=== PATIENT | male | born 1950 | race Caucasian/White ===

== ENCOUNTER 2016-06-19 15:40 | Observation (INO) | payer MEDICARE ==
[~2016-06-19] VITALS: Ht 175.3 cm; Wt 96.6 kg
--- NOTE | ~2016-06-19 | ECH ---
Transthoracic Echocardiography Report (TTE) Demographics Patient Name RUSSELL COBOS Date of Study 06/20/2016 Patient Number [id number] Visit Number [id number] Date of 1950 Room Number 427 Gender Male Number Age 66 year(s) Referring Jez Kelley Features Reporter Monica Vila [facility] Physician MD Jez STEWART Physician Interpreting Leonel Slaughter MD Forest Manager Physician Supervising Ordering Jez Kelley MD/JUAN MIGUEL Physician Nurse Stress Physics Technician Conclusions Summary Technically fair exam. The estimated left ventricular ejection fraction is 50-55%. Segmental wall motion abnormalities noted. Mild concentric left ventricular hypertrophy. Diastolic assessment reveals Grade I diastolic dysfunction. No significant valvular abnormalities. Procedure Type of Study TTE procedure:Echo Complete SF. Procedure Date Date: 06/20/2016 Start: 08:45 AM Technical Quality: Fair due to body habitus. Indications:Chest pain and Coronary artery disease. Appropriate Use Criteria: 9 Height: 69 inches Weight: 213 pounds BSA: 2.12 m Rhythm: Within normal limits HR: 68 bpm BP: 100/63 mmHg M-Mode/2D Measurements LV Diastolic Dimension: 4.72 cm LV Systolic Dimension: 3.85 cm LV Septum Diastolic: 1.18 cm LV PW Diastolic: 1.18 cm AO Root Dimension: 2.69 cm Cardiac Output: 3.98 l/min LA Dimension: 4.41 cm Cardiac Index: 1.88 l/min*m RV Diastolic Dimension: 3.33 cm LA volume index: 19 ml/m LVOT: 1.84 cm LVOT VTI: 22 cm RV Base: 3.2 cm LV Stroke volume: 58.47 ml RV Mid: 2.6 cm LV Stroke volume index: 27.58 ml/m RV Length: 5.8 cm TAPSE: 1.4 cm TDI-S': 10 cm/s Doppler Measurements AV Peak Velocity: 1.26 m/s MV Peak E-Wave: 0.69 m/s AV Peak Gradient: 6.35 mmHg MV Peak A-Wave: 0.81 m/s AV Mean Gradient: 3.52 mmHg MV E/A Ratio: 0.86 LVOT Peak Velocity: 1.29 m/s MV P1/2t: 94.6 msec AV Area (Continuity):2.51 cm MV Deceleration Time: 232.1 msec TR Velocity:2.35 m/s MV Area (PHT): 2.32 cm TR Gradient:22.03 mmHg PV Peak Velocity: 1.06 m/s Estimated RAP:5 mmHg PV Peak Gradient: 4.49 mmHg Estimated RVSP: 27 mmHg Estimated PASP: 27.03 mmHg E' Septal Velocity: 0.07 m/s A' Septal Velocity: 0.1 m/s E' Lateral Velocity: 0.16 m/s A' Lateral Velocity: 0.1 m/s RA Area: 13.23 cm Findings Left Ventricle The left ventricle is normal in size . Mild concentric left ventricular hypertrophy. Diastolic assessment reveals Grade I diastolic dysfunction. Right Ventricle Normal right ventricle structure and function. Left Atrium Normal left atrial size. Right Atrium Normal right atrial size. Mitral Valve Normal mitral valve structure and function. Aortic Valve Normal aortic valve structure and function. Tricuspid Valve Normal tricuspid valve structure and function. Mild tricuspid regurgitation by color Doppler. Estimated pulmonary pressures within normal range. Pulmonic Valve Normal pulmonic valve structure and function. Pericardial Effusion No evidence of pericardial effusion. Miscellaneous Visualized portions of the aortic root and ascending aorta appear normal in size. Pleural Effusion No evidence of pleural effusion. Contractility Score LV regional wall motion:(0-Non visualized 1-Normal 2-Hypokinesis 3-Akinesis 4-Dyskinesis 5-Aneurysm) Signature
--- NOTE | 2016-06-21 12:40 | ER ---
ADMIT: 06/19/2016 RM/LOC: 427 [facility] MR#: [id number] [address] [address] CHANDRIKA, DARMICHAEL Wetzel [address] [place] [address] Emergency Room Report SEX: M AGE: 66 : 1950 DATE: 06/19/2016 ADDENDUM: A 66-year-old white male with known coronary disease, developing escalating angina to the point where he can hardly do anything without having chest pain. Nitroglycerin helps as long as he does not do anything. We put an inch of paste on him and he has been doing better. He is a diabetic along with his coronary disease. [facility], so we will hold him tonight, Dr. Carlton will dictate addendum unless otherwise needed. CONDITION ON DISCHARGE/ADMISSION: Serious, but stable. Cristobal Ko MD/ brayan JOB #: [id number] CC: Juan Story MD, Attending Physician Juan Story MD, Family Physician
--- NOTE | 2016-06-26 16:45 | HP ---
ADMIT: 06/19/2016 RM/LOC: 427 [facility] MR#: [id number] [address] [address] CHANDRIKA, DARMICHAEL Wetzel [address] [place] [address] History and Physical SEX: M AGE: 66 : 1950 DATE OF SERVICE: CHIEF COMPLAINT: Chest pain. HISTORY OF PRESENT ILLNESS: This is a 66-year-old male, [facility] patient, with past medical history significant for coronary artery disease, status post stenting to the RCA in 1999 and a 4-vessel bypass in 2007, hypertension, hyperlipidemia, and type 2 diabetes mellitus, admitted with unstable angina. The patient states that for the past several weeks, he has felt that "something wasn't right." He has been getting chest discomfort and nausea with associated shortness of breath that worsens with exertion and resolves with rest. Since his bypass in 2007, he has been trying to exercise regularly, although he does state that he does not eat a very low-fat cardiac healthy diet. In the past few months, he has been walking and jogging and doing light weights. This past week, he has only been able to exercise for a total of 3-4 minutes before becoming severely short of breath and experiencing chest discomfort. Today, he was seen at the [facility] here in town and was wore out after making the short walk from the car to the clinic. At the [facility], he told the nurse that he was having some chest discomfort at that time and was immediately given nitroglycerin, aspirin, and put on 4 L of oxygen. His EKG at that time showed a normal sinus rhythm. He was then transferred to [facility] for further care. He states that his chest discomfort did resolve after he was given the nitroglycerin. Upon arriving to the ED here at [facility], an EKG was performed and was negative for acute [place]. His chest x-ray showed mild cardiomegaly. His vitals were stable. His initial troponin was negative. Currently states that he is chest pain-free. PAST MEDICAL HISTORY: 1. Coronary artery disease, status post stenting to the RCA in 1999 and a 4- vessel bypass in 2007. 2. Diabetes mellitus type 2. 3. Cataracts. 4. Hearing loss. 5. Hypertension. 6. Hypothyroidism. 7. Depression. 8. Hyperlipidemia. PAST SURGICAL HISTORY: 1. One stent to the RCA in 1999. 2. Four-vessel bypass in 2007. MEDICATIONS: 1. Enalapril 5 mg one tab daily. 2. Glipizide 5 mg one tab daily. 3. Levothyroxine 0.15 mg one tab daily. 4. Loratadine 10 mg one time daily. 5. Metformin 1000 mg one tab b.i.d. 6. Metoprolol tartrate 50 mg one tab b.i.d. ADMIT: 06/19/2016 RM/LOC: 427 [facility] MR#: [id number] [address] [place] [id number] [facility] [address] [place] [address] History and Physical SEX: M AGE: 66 : 1950 7. Simvastatin 80 mg one tab daily. ALLERGIES: NONE. SOCIAL HISTORY: He denies tobacco, alcohol, or illegal drug use. He does state that he drinks a gallon of ice tea daily and 8 cups of coffee daily. REVIEW OF SYSTEMS: A 10-point review of systems was reviewed and negative other than that stated above in the HPI. PHYSICAL EXAMINATION: VITAL SIGNS: Blood pressure 118/50, pulse 79, respirations 18, temp 98.8. GENERAL: He is alert and oriented x3. No acute distress. HEART: Regular rate and rhythm. No murmur. LUNGS: Clear. ABDOMEN: Obese, soft, nontender, nondistended. Positive bowel sounds. EXTREMITIES: No edema. LABORATORY DATA: Sodium 135, potassium 4.3, creatinine 1.5. White count 12.9, hemoglobin 16.7, platelets 204. LDH was 268. Magnesium 1.8. CK 578, MB 6.9. Troponin with normal EKG. Normal sinus rhythm. Chest x-ray showed mild cardiomegaly. ASSESSMENT AND PLAN: 1. Unstable angina. We will go ahead and trend his cardiac enzymes tonight as well as EKGs. Cardiology has been consulted for the morning. Also will go ahead and get an echo in the morning. 2. History of coronary artery disease, status post bypass. 3. Type 2 diabetes mellitus. We will hold his metformin and start sliding scale insulin. We will also check hemoglobin A1c. 4. Hypertension. Continue current hypertensive medications. 5. Hyperlipidemia. We will check a fasting lipid profile in the morning. 6. Acute kidney injury. His current creatinine is 1.5, but does not appear that he has a history of chronic kidney disease. We will increase his fluids to 100 mL an hour of normal saline tonight and recheck a BMP in the morning. 7. Obstructive sleep apnea, on continuous positive airway pressure. We will see if we can get in that here tonight. Kimberly Delgado DO Resident / Juan Story MD / brayan JOB #: [id number] CC: Juan Story, Attending Physician Juan Story, Family Physician
--- NOTE | 2016-06-27 08:04 | DS ---
ADMIT: 06/19/2016 RM/LOC: 427 [facility] MR#: [id number] [address] [address] RUSSELL COBOS [address] [place] [address] General Discharge Summary SEX: M AGE: 66 : 1950 ADMISSION DATE: 06/19/2016 DISCHARGE DATE: 06/21/2016 FINAL DIAGNOSES: 1. Unstable angina. 2. Known coronary artery disease - status post PCI to RCA and 4-vessel bypass. 3. Diabetes mellitus. 4. Acute kidney injury - resolved. 5. Systemic hypertension. 6. Hyperlipidemia. 7. History of mild depression. 8. Status post cataracts. 9. Chronic hearing loss. 10.Obstructive sleep apnea - on CPAP. BRIEF HISTORY: This 66-year-old male, [facility] patient, with a significant past history for coronary artery disease who stated for the previous several weeks prior to admission, he had felt "something was not right." He had been getting chest discomfort and nausea associated with shortness of breath, it would worsen with exertion and resolved with rest. In the week prior to admission, been able to only exercise for a total of 3 or 4 minutes before becoming severely short of breath and experiencing chest discomfort. On the day of admission, he was seen at the [facility] in [place] and was worn out after making short walk from the car to the clinic. He told the nurse at the [facility] about his chest discomfort and was given nitroglycerin, aspirin, and put on 4 L of O2. His EKG showed normal sinus rhythm and no acute changes. He was transferred to [facility] by private car. He reported that the chest discomfort he was experiencing resolved with nitroglycerin. Initial workup in the ER was benign. He was admitted for further evaluation and treatment. SIGNIFICANT LAB AND X-RAY: On 06/19 CBC showed hemoglobin of 16.7 g with essentially normal indices. Platelets of 204,000 white count of 12,900. Serial CBCs were followed and remained basically stable. Serial PTTs were followed to monitor his heparin therapy. On admission, CMP was normal, but for an LDH of 268 U/L (normal 84-246). On admission total CK was elevated at 578 U/L (normal 39-308), MB at 6.9 ng/mL (normal 0.0-3.6) with normal troponins. These were repeated q.6 hours x3 further and remained basically stable until 0400 hours on 06/21 when his troponin bumped up to 0.173 ng/mL. On 06/20 lipid panel showed total cholesterol 157 mg/dL, triglycerides of 188 mg/dL, HDL of 42, and LDL of 77 mg/per dL with a non HDL cholesterol of 115. Serial bedside blood sugars were followed. ADMIT: 06/19/2016 RM/LOC: 427 [facility] MR#: [id number] [address] [place] [address] General Discharge Summary SEX: M AGE: 66 : 1950 On 06/20 glycosylated hemoglobin was 8.0%. Chest x-ray on admission was read as "no definite acute cardiopulmonary process is identified. Mild cardiomegaly without radiographic evidence of acute cardiac decompensation/CHF is identified. Possible atelectasis, left lower lobe." On 06/20, he underwent transthoracic echocardiogram, showing ejection fraction of 50%-55% with segmental wall motion abnormalities noted, mild concentric left ventricular hypertrophy. No significant valvular abnormalities and grade 1 diastolic dysfunction. EKG of 06/20 at 0300 hours was read as "sinus bradycardia, septal and lateral ST-T abnormalities nonspecific, borderline ECG." Repeat on 06/21 at 0400 hours showed sinus bradycardia with rightward axis and anteroseptal and lateral T- wave abnormality, may be due to myocardial ischemia. Compared to 06/21/2011, no significant change. HOSPITAL COURSE: The patient was admitted through the emergency room and imaging and laboratory studies outlined above were begun. He was placed on telemetry with routine telemetry orders and placed on the chest pain point of entry ER protocol. He was allowed a diabetic diet. An IV of normal saline was run at keep open rate. Q.i.d. Accu-Cheks were started with low-dose sliding scale Humalog. Echocardiogram was ordered. Cardiology consultation was requested and Dr. Sharan Story was kind enough to see him on the morning of 06/20. That led to the further cardiac workup. His creatinine was 1.4 on admission. He was placed on heparin per ACS weight-based protocol and kept n.p.o. after midnight. Heart catheterization was discussed with him by Dr. Sharan Story. Connections were made with the [facility] in [place] and they were on diversion. By late afternoon of 06/20, it was felt best to transfer him to [facility] the following morning, Dr. Wylie was the accepting physician. He had a quiet night and on 06/21, he was transferred to [facility] for further evaluation. On dismissal, his Zocor was stopped, he was placed on generic Crestor 20 mg daily and Zetia 10 mg daily and aspirin 162 mg daily. His other medications included: 1. Claritin 10 mg daily. 2. Glucotrol 5 mg daily. 3. Lopressor 50 mg b.i.d. ADMIT: 06/19/2016 RM/LOC: 427 [facility] MR#: [id number] 26[address] [facility] [address] [place] [phone] RUSSELL COOBS [address] [place] [address] General Discharge Summary SEX: M AGE: 66 : 1950 4. Synthroid 0.15 mg daily and p.r.n. orders for glucose, Maalox, Tylenol, and Nitrostat. He is also on aspirin 162 mg daily. CONDITION ON TRANSFER: Stable on above treatment. FINAL DISPOSITION: As noted. PROGNOSIS: Guarded. Juan Story MD/ brayan JOB #: [id number] CC: Juan Story MD, Attending Physician Juan Story MD, Family Physician . [facility]
--- NOTE | 2016-07-05 17:24 | CO ---
ADMIT: 06/19/2016 RM/LOC: 427 [facility] MR#: [id number] [address] [address] RUSSELL COOBS [address] [place] [address] Consultation SEX: M AGE: 66 : 1950 DATE OF CONSULTATION: 06/20/2016 ATTENDING PHYSICIAN: Juan Story CONSULTING PHYSICIAN: Sharan Story MD REASON FOR CONSULT: Chest pain. Zamzam Blackbunr RN, scribing for Dr. Sharan Story. HISTORY OF PRESENT ILLNESS: Russell is a very pleasant, 66-year-old gentleman, I have been asked to see in Cardiology consultation by Dr. Juan Story for chest discomfort. He has history of prior coronary artery disease, status post PCI to RCA after myocardial infarction in the year 1999. He also had history of four-vessel bypass per his report in [place] in 2007 through the [facility]. He has history of sleep apnea, hypertension, hyperlipidemia, and diabetes, and multiple family members with premature coronary artery disease before the age of 50. Russell gets his care through the [facility]. Russell [facility]. He reports that he had some issues with high blood pressure and some chest discomfort in March and he thought it was more due to the increased caffeine intake resulting in high blood pressure, so, he increased his exercise at that time as well as decreased his caffeine intake. He said his blood pressure improved and he started jogging and lifting weights on a regular basis. He then reports about 1 to 2 weeks ago, he had a sudden change in his activity tolerance. He states that he was on the treadmill. He could only go about three or four minutes and he had to stop because of but tightness/"knot" in his chest, severe leg weakness, shortness of breath, nausea, and diaphoresis. He had to stop what he was doing, rest would take his symptoms away. He denies any symptoms with rest. His chest discomfort is always exertional. He reports that his symptoms steadily got worse, occurred with less activity, and were occurring more frequently. He states that his discomfort is exactly the same as what he experienced prior to his myocardial infarction with stent and bypass. He actually lives in [place] but drove to [place] yesterday so that he could be evaluated by the [facility] the [facility], he states that just walking from the parking lot into the building, he began to experience severe chest discomfort and shortness of breath along with nausea and diaphoresis, and sat down. He said he sat about an hour at the doctor's office, but still continued to have chest discomfort when he was evaluated by the physician. He was given aspirin, nitroglycerin, and oxygen, and with those medications, his symptoms dissipated. He was then transferred to [facility] where workup included cardiac enzymes, which have been negative x3. An EKG did not show any significant ST-T changes. At rest in the hospital, he has not had any recurrent symptoms. PAST MEDICAL HISTORY: 1. Cardiac history as outlined above. ADMIT: 06/19/2016 RM/LOC: 427 [facility] MR#: [id number] [address] [place] [phone] [place] [address] [place] [address] Consultation SEX: M AGE: 66 : 1950 2. Sleep apnea. 3. Hypertension. 4. Hyperlipidemia. 5. Diabetes. 6. Acute kidney injury in hospital. 7. Hypothyroidism. 8. Osteoarthritis. PAST SURGICAL HISTORY: Includes a bypass. ALLERGIES: NO KNOWN MEDICATION ALLERGIES. MEDICATIONS: Current medications include: 1. Enalapril 5 mg daily. 2. Levothyroxine 150 mcg daily. 3. Glipizide 5 mg daily. 4. Loratadine 10 mg daily. 5. Metoprolol 50 mg p.o. b.i.d. 6. Zocor 80 mg p.o. at bedtime. 7. Claritin 10 mg daily. 8. Sliding scale insulin a.c. and at bedtime. FAMILY HISTORY: Positive family history of multiple family members having myocardial infarctions prior to the age of 50. SOCIAL HISTORY: Russell lives with his significant other in [place], and they moved together about nine years. He drinks quite a bit of coffee stating about eight cups of coffee a day and up to a gallon of tea daily. He denies any alcohol, drug, or tobacco use. REVIEW OF SYSTEMS: GENERAL: Reports increased fatigue over the last 2 weeks. Denies any recent fever, chills, or sweats or weight changes. EYES: Wears corrective lenses. Denies glaucoma or cataracts. THROAT, MOUTH, AND EARS: Denies hearing loss or problems with nose, mouth or throat. RESPIRATORY: History of sleep apnea. Denies cough, sputum production, asthma, emphysema or bronchitis. Denies snoring loudly, wakefulness at night, or fatigue upon awakening. GASTROINTESTINAL: Denies heartburn or difficulty swallowing. No change in bowel habits. Denies dark or bloody stools. No history of ulcers, hiatal hernia, or gallbladder or liver disease. GENITOURINARY: Currently, has acute kidney injury with elevated creatinine of 1.4. Denies any other issues. MUSCULOSKELETAL: History of osteoarthritis. Denies gout. ENDOCRINE: History of diabetes and hypothyroidism. HEMATOLOGIC: Denies history of anemia, easy bruising, or cancer. NEUROLOGIC: Denies chronic headaches, dizziness, syncope, stroke, seizures or numbness or tingling. ADMIT: 06/19/2016 RM/LOC: 427 [facility] MR#: [id number] [facility] [address] [address] RUSSELL COBOS [address] [place] [address] Consultation SEX: M AGE: 66 : 1950 PSYCHIATRIC: Denies history of mental illness or feelings of depression. PHYSICAL EXAMINATION: GENERAL: Alert and talkative. VITAL SIGNS: Blood pressure 100/63, heart rate 62, respirations 18, temperature 97.3, oxygenation 95% on room air. SKIN: Grant, warm and dry. EYES: Sclerae clear. No xanthelasmas. ENT: Oral mucosa is pink and moist. No jugular venous distention or carotid bruits. CHEST: Respirations are even and unlabored. Lungs are clear to auscultation. HEART: Regular rate and rhythm. Normal S1, S2. No murmurs, rubs or gallops. ABDOMEN: Obese, nontender, and nondistended. MUSCULOSKELETAL: Gait is normal. EXTREMITIES: Peripheral pulses palpable. No clubbing, cyanosis or edema. PSYCHIATRIC: Alert and oriented. Mood and affect are appropriate. DIAGNOSTIC DATA: Sodium 136, potassium 3.6, BUN 17, creatinine 1.4, glucose 147, magnesium 1.8, cholesterol 157, triglycerides 188, HDL 42, LDL 77. CK 476, MB 5.0. Troponin less than 0.015. White blood cell count 11.5, hemoglobin 15.3, hematocrit 44.8, platelets 201. Hemoglobin A1c 8.0. ASSESSMENT AND PLAN: 1. Possible acute coronary syndrome/unstable angina. 2. Known history of coronary artery disease status post PCI to RCA and four- vessel bypass. 3. Diabetes. 4. Acute kidney injury. 5. Hypertension. 6. Hyperlipidemia. Russell is a 66-year-old male with known history of coronary artery disease. He has had progressive chest pain and decreased exercise tolerance over several weeks. Enzymes have been negative x3. EKG shows nonspecific ST-T changes. He has a history of high blood pressure. His creatinine is 1.4 in hospital. He is ruled out thus far, but symptoms are concerning for unstable angina. Ultimately, I recommend coronary and graft angiography. I will hydrate him given his elevated creatinine, and continue to follow lab work as well as evaluate echocardiogram for any wall motion abnormalities, valvular abnormalities, or decreased ejection fraction. I will obtain his records regarding his bypass history in 2007 in [place]. I will start a heparin drip per protocol. Keep him n.p.o. after midnight other than medications, and recheck cardiac enzymes in the morning along with CBC and BMP. I discussed with Russell the risks and benefits of heart catheterization with risks including, but not limited to bleeding, infection, vessel damage, reaction to contrast dye, kidney dysfunction due to contrast dye, stroke, myocardial ADMIT: 06/19/2016 RM/LOC: 427 [facility] MR#: [id number] [address] [address] RUSSELL COBOS [address] [place] [address] Consultation SEX: M AGE: 66 : 1950 infarction, rarely loss of life. He states understanding and with his unstable symptoms, kidney disease, and multiple grafts, I did discuss with him that it may be better to have his cardiac catheterization performed in [facility] in case there were any issues at that time. He states understanding and is agreeable to cardiac catheterization either in [place] or in [place] at [facility]. Thank you for the consultation. I have read and agree with the documentation that has been completed regarding this visit. By signing this record, I attest that the documentation was completed in my physical presence and is an accurate record of the encounter. Zamzam Blackburn RN / Sharan Story MD / brayan JOB #: [id number] CC: Juan Story, Attending Physician Juan Story, Family Physician
== END 2016-06-21 08:20 | disposition short-term general hospital (02) ==
LOC: ER 15:40 → 4PCU 20:28
PROVIDERS: ADMIT Family Medicine
DX: I25.110 Atherosclerotic heart disease of native coronary artery with unstable angina pectoris (principal); E11.9 Type 2 diabetes mellitus without complications; I10 Essential (primary) hypertension; N17.9 Acute kidney failure, unspecified; G47.33 Obstructive sleep apnea (adult) (pediatric); E03.9 Hypothyroidism, unspecified; F32.9 Major depressive disorder, single episode, unspecified; E78.5 Hyperlipidemia, unspecified; H91.90 Unspecified hearing loss, unspecified ear; H26.9 Unspecified cataract; M19.90 Unspecified osteoarthritis, unspecified site; Z95.1 Presence of aortocoronary bypass graft; Z98.890 Other specified postprocedural states; Z79.899 Other long term (current) drug therapy